=== PATIENT | female | born 1950 | race Hispanic/Latino ===

== ENCOUNTER 2021-12-22 11:00 | Outpatient (CLI) | payer MEDICARE ==
[2021-12-23 08:26] LABS: SARS-CoV-2 PCR by NAA Not Detected (NotDetected)
== END 2021-12-22 11:01 | disposition home or self-care (01) ==
LOC: LABBT 11:00
PROVIDERS: ATTEND Ophthalmology Retina Specialist
DX: Z01.812 Encounter for preprocedural laboratory examination (principal); H54.7 Unspecified visual loss; Z20.822 Contact with and (suspected) exposure to COVID-19
CPT/HCPCS: U0003; U0005

== ENCOUNTER 2021-12-29 11:05 | Outpatient (CLI) | payer MEDICARE ==
[2021-12-29 20:46] LABS: SARS-CoV-2 PCR by NAA Not Detected (NotDetected)
== END 2021-12-29 11:06 | disposition home or self-care (01) ==
LOC: LABBT 11:05
PROVIDERS: ATTEND Ophthalmology Retina Specialist
DX: Z01.812 Encounter for preprocedural laboratory examination (principal); H35.372 Puckering of macula, left eye; Z20.822 Contact with and (suspected) exposure to COVID-19
CPT/HCPCS: U0003; U0005

== ENCOUNTER 2022-01-01 09:06 | Day surgery (SDC) | payer MEDICARE ==
[2021-12-18 11:33] VITALS: BMI 22.7
[~2022-01-01 09:06] MED LIST: Fentanyl 100 MCG/2 ML VIAL ONE; Fluorouracil 100 MG, Enoxaparin Sodium 25 MG, EPINEPHrine 0.3 MG in Ophthalmic Irrigati... IRR SCH; Midazolam HCl 2 mg/2 ml Vial ONE
[2022-01-01] MEDS ORDERED: Phenylephrine 2.5% Ophth Soln 5 ML BOT ONE (09:23)
[2022-01-01] MEDS ORDERED: Cyclopentolate 1% Opth Drop 2 ML BOT ONE (09:23)
[2022-01-01] MEDS ORDERED: Famotidine/PF 20 mg/2ml Vial ONE (11:30)
[2022-01-01] MEDS ORDERED: Metoclopramide HCl 10 MG/2 ML VIAL ONE (11:50)
[2022-01-01] MEDS ORDERED: Lidocaine 1% PF 5 ML VIAL ONE ×2 (11:50)
[2022-01-01] MEDS ORDERED: PROPOFOL 200 MG/20 ML VIAL ONE (11:50)
[2022-01-01] MEDS ORDERED: Maxitrol 0.1% Opth Oint 3.5 GM TUBE ONE (11:50)
[2022-01-01] MEDS ORDERED: Bupivacaine PF 0.75% SDV 10 ML ONE (11:50)
[2022-01-01] MEDS ORDERED: Triamcinolone 40 MG/ML VIAL ONE (11:50)
[2022-01-01] MEDS ORDERED: Ondansetron PF 4 MG/2 ML Vial ONE (11:50)
[2022-01-01] MEDS ORDERED: Dexamethasone 20 MG/5 ML VIAL ONE (11:50)
[2022-01-01] MEDS ORDERED: Lidocaine 4% PF 5 ML AMP ONE (11:50)
[2022-01-01] MEDS ORDERED: CEFAZOLIN 1 GM VIAL ONE (11:50)
[2022-01-01] MEDS ORDERED: ePHEDrine 50 MG/ML VIAL ONE (11:50)
[2022-01-01] MEDS ORDERED: Enoxaparin Sodium 30 MG/0.3 ML SYRINGE ONE (11:50)
[2022-01-01] MEDS ORDERED: Promethazine HCl 25 MG/ML VIAL ONE (13:28)
== END 2022-01-01 14:30 | disposition home or self-care (01) ==
LOC: SDC 09:06
PROVIDERS: ATTEND Ophthalmology Retina Specialist
PROC: 08T53ZZ Resection of Left Vitreous, Percutaneous Approach (ICD-10-PCS; principal; 2022-01-01)
PROC: 08NF3ZZ Release Left Retina, Percutaneous Approach (ICD-10-PCS; 2022-01-01)
DX: H35.372 Puckering of macula, left eye (principal); Z79.82 Long term (current) use of aspirin; Z79.899 Other long term (current) drug therapy; Z88.1 Allergy status to other antibiotic agents; Z88.5 Allergy status to narcotic agent; Z88.8 Allergy status to other drugs, medicaments and biological substances; Z91.040 Latex allergy status
CPT/HCPCS: J0171; J0690; J1100; J1650; J2250; J2405; J2550; J2704; J2765; J3010; J3301; J3490; J9190; S0028